=== PATIENT | female | born 1950 | race Caucasian/White ===

== ENCOUNTER 2018-09-14 14:47 | Emergency (ER) | payer OTHER ==
[2018-09-14 15:15] VITALS: BP 129/91
--- NOTE | 2018-09-14 15:24 | EDPHY ---
H & P Time Seen by Provider: 09/14/18 15:09 HPI/ROS: HPI Left ankle injury. 68-year-old female by private vehicle with and grandson, the patient has a history of a left-sided drop foot. She was not paying attention and did not lift her foot fully over a curb. She twisted it awkwardly, inverting and dorsiflexing the left ankle. She complains of isolated left ankle pain and left lateral ankle swelling. No other complaint or injury. ROS: Constitutional: No fever, no chills. No weakness. Musculoskeletal: No back pain. No neck pain. As above. Denies other extremity pain. Skin: No rashes. No lacerations or abrasions. Neurological: No headache. No focal weakness or altered sensation. 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 Cerebral aneurysm, CVA in 2017, sinus infections. Social history: Nonsmoker. She is here with family. No alcohol. Physical Exam: General Appearance: Alert, no distress. This patient is responding to questions appropriately and in full sentences. This patient appears well- hydrated and well-nourished. Head: Normocephalic atraumatic. Eyes: Pupils equal and round no pallor or injection. No lid edema, erythema or injection. Left foot and ankle exam: She has some tenderness and swelling isolated to the left lateral malleolus. No associated ecchymosis, erythema or warmth. The bony aspects of the left foot are without deformity on palpation and no significant tenderness on palpation, however secondary to her prior nerve injury she does have limited sensation over the dorsal aspect of the left foot. There is no associated ecchymosis, edema, erythema or warmth noted on examination of the left foot. The left foot is neurovascularly intact. No acute neurologic changes involving the left foot. Neurological: Motor sensory function is grossly intact except noted. Cranial nerves are normal. Skin: Warm and dry, no rashes. No lacerations or abrasions. Musculoskeletal: Neck is supple and nontender. Extremities are symmetrical. All joints range without pain or impingement. Psychiatric: No agitation. No depression. Database: EKG: Imaging: Left foot and ankle x-ray series: Nondisplaced fracture medial distal tibia and small nondisplaced fracture lateral malleolus. Demineralization noted. Interpreted by me. Procedures: Emergency department course: Triage vital signs reviewed and are normal. The patient does not require pain medication at this time. X-rays of the left foot and ankle to be obtained shortly. 3:55 p.m., the patient was re-evaluated. Results of x-rays discussed. Her presentation is consistent with an ankle sprain. Given her history of a dropped foot. She will be fitted with an orthopedic boot for protection and support. I discussed non weight-bearing to left foot and ankle with her and her family. She was fitted with crutches and instructed on crutch use. Orthopedic follow-up was discussed. She feels comfortable going home with family. Return to emergency department precautions reviewed with her. All of her questions were answered. She was discharged from the emergency department in good condition with her son and . 5:50 p.m., I spoke with this patient's son whose name is Brian. He was with the patient in the emergency department. I explained to him that the reading radiologist reported her x-rays to involve a nondisplaced fracture of the distal tibia and the lateral malleolus. I instructed the son to have her strict nonweightbearing to the left foot and ankle. I also explained that orthopedic follow-up was important and should be done when she returns home on September 27 or if possible with the holiday, next week here in [place]. We will provide a copy of x-rays for the son to roll picker at the emergency department tomorrow morning. All of his questions were answered. He expressed full understanding of follow-up and management plan. Differential Diagnosis: The differential diagnosis on this patient includes but is not limited to left ankle sprain, left distal tibial fracture nondisplaced, left distal fibula fracture nondisplaced. Ankle dislocation, other significant traumatic injury that noted unlikely. This represents a partial list of diagnoses considered. These considerations are based on history, physical exam, past history, reassessment and diagnostic testing. Smoking Status: Former smoker Constitutional: Initial Vital Signs Temperature (C) 36.3 C 09/14/18 15:03 Heart Rate 69 09/14/18 15:03 Respiratory Rate 16 09/14/18 15:03 Blood Pressure 129/91 H 09/14/18 15:03 O2 Sat (%) 94 09/14/18 15:03 O2 Delivery Mode Room Air Allergies/Adverse Reactions: No Known Allergies Allergy (Unverified 09/14/18 15:03) Home Medications: Medication Instructions Recorded Lipitor 09/14/18 Medical Decision Making - Diagnostics Imaging Results: Imaging Impressions Foot X-Ray 09/14/18 15:18 Impression: Nondisplaced fractures involving the distal medial tibial metaphysis and lateral malleolus. Left Foot (3 Views), at 3:41 PM: Again noted are the nondisplaced distal tibial and fibular fractures. There is no acute fracture or dislocation relative to the foot (there appears to be a mild healed osseous deformity of the distal diaphyseal portion of the third metatarsal). The bones are diffusely demineralized. The tarsometatarsal alignment is anatomic. There is some mild degenerative change of the great toe MTP joint. The toes are held in plantar flexion on the lateral view. Impression: Nondisplaced distal tibial and fibular fractures with diffuse bone demineralization. When clinically feasible, a DEXA scan is suggested. Ankle X-Ray 09/14/18 15:20 Impression: Nondisplaced fractures involving the distal medial tibial metaphysis and lateral malleolus. Left Foot (3 Views), at 3:41 PM: Again noted are the nondisplaced distal tibial and fibular fractures. There is no acute fracture or dislocation relative to the foot (there appears to be a mild healed osseous deformity of the distal diaphyseal portion of the third metatarsal). The bones are diffusely demineralized. The tarsometatarsal alignment is anatomic. There is some mild degenerative change of the great toe MTP joint. The toes are held in plantar flexion on the lateral view. Impression: Nondisplaced distal tibial and fibular fractures with diffuse bone demineralization. When clinically feasible, a DEXA scan is suggested. Departure - Departure Disposition: Home, Routine, Self-Care Clinical Impression: Left ankle sprain, Closed fracture of left distal tibia, Closed fracture of left lateral malleolus Condition: Good Instructions: Ankle Fracture (ED) Additional Instructions: Read and follow provided instructions. No weight-bearing to your left foot and ankle. Ibuprofen dosin mg every 6 hours with meals for the next 3 days only. Take only as needed for pain. Follow-up with your edi specialist or the 1 I have given you a referral to on Monday or after the for re-evaluation and further management. Return to the emergency department for worsening pain, swelling, discoloration or other serious concerns. Referrals: NONE *PRIMARY CARE P,. [Primary Care Provider] - As per Instructions Maria Luz Golden MD [Medical Doctor] - As per Instructions
== END 2018-09-14 16:30 | disposition home or self-care (01) ==
LOC: CED 14:47
DX: S89.192A Other physeal fracture of lower end of left tibia, initial encounter for closed fracture (principal); S82.65XA Nondisplaced fracture of lateral malleolus of left fibula, initial encounter for closed fracture; S93.402A Sprain of unspecified ligament of left ankle, initial encounter; M21.372 Foot drop, left foot; X50.1XXA Overexertion from prolonged static or awkward postures, initial encounter; Y92.9 Unspecified place or not applicable; Y93.9 Activity, unspecified; Y99.9 Unspecified external cause status
CPT/HCPCS: 73610; 73630; 99283; L4386